=== PATIENT | female | born 1995 | race Hispanic/Latino ===

== ENCOUNTER 2018-03-28 10:31 | Emergency (ER) | payer SELFPAY ==
[2018-03-28] MEDS ORDERED: Ketorolac Tromethamine 30 MG/ML VIAL ONE (11:23)
--- NOTE | 2018-03-28 11:44 | RAD ---
1 VIEW CHEST: Date: 03/28/18 HISTORY: Pain. COMPARISON: None. FINDINGS: Normal cardiac silhouette. Pulmonary vessels and hilum are normal. Costophrenic angles are clear. No mass or consolidation. No pneumothorax or osseous abnormalities. IMPRESSION: No acute cardiopulmonary process. POS: TAMICA
== END 2018-03-28 12:06 | disposition home or self-care (01) ==
LOC: ERS 10:31
DX: B02.9 Zoster without complications (principal); I10 Essential (primary) hypertension
CPT/HCPCS: 71045; 93005; 96372; J1885

== ENCOUNTER 2018-07-28 21:56 | Inpatient (IN) | payer SELFPAY ==
[~2018-07-28 21:56] MED LIST: ISOVUE-370 76%-LOCM 1 ML ONE
[2018-07-28] MEDS ORDERED: Morphine 4 MG/ML VIAL ONE (22:18)
[2018-07-28 22:40] LABS: #Basophils 0.1 thou/uL (0.0-0.2); #Eosinphils 0.1 thou/uL (0.0-0.7); #Lymphocytes 3.1 thou/uL (1.20-3.40); #Monocytes 0.6 thou/uL (0.11-0.59); #Neutrophils 6.5 thou/uL (1.40-6.50); %Basophils 0.5 % (0.0-1.0); %Eosinophils 0.8 % (0.0-10.0); %Lymphocytes 29.8 % (21.0-51.0); %Monocytes 5.4 % (0.0-10.0); %Neutrophils 63.5 % (42.0-75.0); Hemoglobin 14.1 g/dL (12.0-16.0); Mean Corpuscular HGB CONC 33.5 g/dL (32.0-36.0); Mean Corpuscular Hemoglobin 29.2 pg (27.0-31.0); Mean Corpuscular Volume 87.3 fL (78.0-98.0); Mean Platelet Volume 8.9 fL (7.4-10.4); Platelet Count 305 thou/uL (130-400); RBC Distribution Width 12.1 % (11.5-14.5); Red Blood Cell (RBC) Count 4.83 mill/uL (4.20-5.40); White Blood Cell (WBC) Count 10.3 thou/uL (4.8-10.8)
[2018-07-28 22:51] LABS: BHCG - Serum Negative (NEGATIVE); Pregs Control Background? CLEAR/WHITE (CLR/WHITE); Pregs Control Bar Appear? YES (CONTROL BAR)
--- NOTE | 2018-07-28 23:23 | RAD ---
TWO VIEW CHEST: 07/28/18 COMPARISON: 03/28/18 INDICATION: Chest pain. FINDINGS: There is patchy left basilar density. Right lung is grossly clear. No obvious effusion or discrete pn eumothorax. Cardiac silhouette is accentuated by shallow depth of inspiration. IMPRESSION: Patchy left basilar density which may either relate to atelectasis or lingular pneumonia. Correlate c linically and as necessary imaging followup may be obtained. POS: DAVY
--- NOTE | 2018-07-28 23:55 | CT ---
CTA CHEST WITH 3D VOLUME RENDERING WITH CONTRAST: 07/28/18 CLINICAL HISTORY: Short of breath. FINDINGS: There is generalized diminished contrast bolus of the pulmonary arterial system, which precludes reli able assessment as pulmonary emboli could be undetectable given the generalized low density contrast bolus of the arterial system. There is enlargement of the pulmonary trunk and do a lesser extent at t he main pulmonary arteries. This can be seen in the setting of pulmonary artery hypertension. There is reticulonodular compaction of the right lower lobe. Patchy density is seen within middle lob e. Left basilar atelectasis is present. The thoracic aorta is normal in caliber. Incidental note of l ow attenuation of the hepatic parenchyma indicative of fatty infiltration. Correlate liver function e nzymes. Evidence of prior cholecystectomy. IMPRESSION: Incomplete assessment for the detection of pulmonary emboli due to generalized low density contrast b olus. No definite large pulmonary embolus is identified. Reticulonodular opacification of the right lower lobe may be related to an atypical infection/inflamm atory process. Additional scattered patchy pulmonary parenchymal opacities demonstrated bilaterally m ay relate to sites of atelectasis. Recommend clinical correlation as well as imaging followup to con firm resolution of densities of the right lower lobe. POS: DAVY
[2018-07-29 00:06] LABS: Bilirubin Negative (Negative); Blood, Urine Negative (Negative); Clarity CLEAR (Clear); Glucose, Urine (Dipstick) Negative (Negative); Leukocyte Negative (Negative); Nitrite Negative (Negative); Protein, Urine (Dipstick) Negative (Neg-Trace); pH, Urine 7.5 (5.0-9.0)
[2018-07-29 00:08] LABS: Specific Gravity, Urine 1.043 (1.002-1.036)
[2018-07-29 00:16] LABS: Albumin 4.1 g/dL (3.5-5.0)
[2018-07-29 00:17] LABS: Chloride 106 mmol/L (98-107); Potassium 4.3 mmol/L (3.5-5.1); Sodium 138 mmol/L (136-145)
[2018-07-29 00:18] LABS: Calcium 9.4 mg/dL (7.8-10.44); Glucose 114 mg/dL (70-105)
[2018-07-29 00:19] LABS: Globulin 3.1 g/dL (2.4-3.5); Protein, Total 7.2 g/dL (6.0-8.3)
[2018-07-29 00:20] LABS: Amphetamine Not Detected (NotDetected); Barbiturates Screen Not Detected (NotDetected); Benzodiazepine Screen Not Detected (NotDetected); Cocaine Metabolite Screen Not Detected (NotDetected); Medtox Control Line Valid? VALID (VALID); Medtox Reader # READER 4; Methadone Not Detected (NotDetected); Methamphetamine Not Detected (NotDetected); Opiate Screen Detected (NotDetected); Oxycodone Screen Not Detected (NotDetected); Phencyclidine (PCP) Not Detected (NotDetected); THC/Cannabinoid Screen Not Detected (NotDetected); Tricyclic Screen Not Detected (NotDetected)
[2018-07-29 00:20] LABS: Anion Gap 12 mmol/L (10-20); Bilirubin, Total 0.3 mg/dL (0.2-1.2); Carbon Dioxide 24 mmol/L (22-29)
[2018-07-29 00:21] LABS: Alcohol Less than 10 mg/dL (Less than 10); Alkaline Phosphatase 48 U/L (40-150)
[2018-07-29 00:22] LABS: Calc. Creatinine Clearance 0 mL/min (70-130); Estimated GFR-MDRD Greater than 90
[2018-07-29 00:23] LABS: AST (SGOT) 16 U/L (5-34); BUN (Urea Nitrogen) 13 mg/dL (7.0-18.7)
[2018-07-29 00:24] LABS: ALT (SGPT) 19 U/L (8-55); Acetaminophen Less than 6.0 mcg/mL (10.0-30.0); Salicylate Less than 8.0 mg/dL (15.0-30.0)
[2018-07-29] MEDS ORDERED: Ketorolac Tromethamine 30 MG/ML VIAL ONE (01:00)
[2018-07-29] MEDS ORDERED: Ondansetron PF 4 MG/2 ML Vial ONE ×2 (01:00→02:43)
[2018-07-29] MEDS ORDERED: Azithromycin 500 MG VIAL ONE (01:15)
[2018-07-29] MEDS ORDERED: cefTRIAXone\\ROCEPHIN 1 GM VIAL ONE (01:26)
[2018-07-29 03:04] LABS: Lactic Acid 2.6 mmol/L (0.5-2.2)
[2018-07-29 03:29] VITALS: BMI 41.5
[2018-07-29] MEDS ORDERED: Ondansetron PF 4 MG/2 ML Vial IVP PRN (04:47)
[2018-07-29] MEDS ORDERED: Acetaminophen 325 MG TAB PO PRN (04:47)
[2018-07-29] MEDS ORDERED: Enoxaparin Sodium 100 MG/ML SYRINGE SC SCH ×2 (05:30→21:00)
--- NOTE | 2018-07-29 07:05 | HP ---
PRIMARY CARE PHYSICIAN: Dr. Darling. CODE STATUS: Full code. TIME OF EVALUATION: 5:00 a.m. CHIEF COMPLAINT: Chest pain. HISTORY OF PRESENT ILLNESS: This is a 22-year-old female patient with past medical history of obesity, also taking oral contraceptive pills. The patient came to the hospital after having left-sided chest pain that was presently worsening with deep inspiration, improving with pain medications given in the hospital. No clear triggers. No alleviating factors. The patient has associated cough. No significant sputum production. Had no fever. The symptoms were reported as severe. Pain was reported as 8/10. REVIEW OF SYSTEMS: CONSTITUTIONAL: No fever, chills, or generalized weakness. RESPIRATORY: The patient has shortness of breath and left-sided pleuritic pain. No sputum production. CARDIOVASCULAR: No chest pain or palpitation. GASTROINTESTINAL: No nausea. No vomiting, diarrhea, or abdominal pain. POLY OPERATOR: No dizziness, headache, or feeling lightheaded. GENITOURINARY: No burning on urination. EXTREMITIES: No leg swelling. All other systems were reviewed and negative except for the findings mentioned above. PAST MEDICAL HISTORY: Positive for obesity and hypertension. FAMILY HISTORY: Reviewed, noncontributory for current presentation. PAST SURGICAL HISTORY: Cholecystectomy. PSYCHIATRIC HISTORY: No previous psych history. SOCIAL HISTORY: Drinks socially once a month. The patient denies any drug use. No smoking history. KNOWN ALLERGIES: No known drug allergies. REPORTED MEDICATIONS: Unknown control pills. PHYSICAL EXAMINATION: VITAL SIGNS: On presentation, blood pressure 148/76 with heart rate of 114, respiratory rate was 30, temperature 98.2, pain 8/10, and oxygen saturation 98% on room air. GENERAL APPEARANCE: The patient is alert, oriented, not in acute distress. HEENT: Eyes, normal conjunctivae. Moist oral mucosa. Anicteric. No JVD. RESPIRATORY: Bilateral air entry. No rales. No wheezes. Symmetric expansion. CARDIOVASCULAR: The patient is tachycardic, irregular rhythm. No murmurs, no gallops. No edema. ABDOMEN: Soft. Normal bowel sounds. MUSCULOSKELETAL: Baseline range of motion and strength. No tenderness. SKIN: Warm and intact. No pallor. No rash. No redness. VASCULAR: Peripheral pulses are present. Capillary refill seems to be intact. NEURO: No evidence of any new focal weakness. Baseline speech. Cranial nerves seem to be intact. PSYCH: The patient is in good mood. No anxiety. Optimal judgment. DIAGNOSTIC DATA: EKG was reviewed. The patient has sinus tachycardia at a rate of 107. IA 154, QRS 78, and QT corrected 421. LABORATORY DATA: Reviewed. The patient has white count 10.3, hemoglobin 14.1, hematocrit 42.2, and platelet count 305. D-dimer 1.92 and is positive. Serum chemistry; sodium 138, potassium 4.3, chloride 106, carbon dioxide 24, anion gap 12, BUN 13, creatinine 0.69, GFR greater than 90, glucose 114, lactic acid 2.4 and a repeat one 2.6, calcium 9.4, total bilirubin 0.3, AST 16, ALT 19, and alkaline phosphatase 48. Troponin was negative. TSH 7.6. Toxicology was positive for opiates. ASSESSMENT AND PLAN: The patient will be placed in the hospital with following medical problems: 1. Chest pain that is atypical, likely secondary to underlying infectious process and pulmonary embolism remains in the differential. The patient will be started on antibiotics and also anticoagulation, CT angio showed possible infiltrates versus atelectasis and also was of not good quality to rule out pulmonary embolism. 2. Possible pneumonia likely causing the chest pain. The patient will be started on antibiotics and we will follow up cultures, we will adjust treatment as per sensitivity. 3. Elevated D-dimer with chest pain, tachycardia has been going with Lovenox. Might need a repeat CAT scan to rule out pulmonary embolism. 4. Deep venous thrombosis prophylaxis. The patient has been started on anticoagulation. 5. The patient is obese. Recommendations to lose weight. Job ID: [id number]
[2018-07-29] MEDS ORDERED: Sodium Chloride 0.9% 1,000 ML IV SCH (09:45)
[2018-07-29] MEDS: Sodium Chloride 0.9% 1,000 ML IV SCH ×2 (09:51→18:29)
[2018-07-29] MEDS: Ketorolac Tromethamine 30 MG/ML VIAL IVP PRN ×2 (09:51→20:25)
--- NOTE | 2018-07-29 16:01 | PDOC.PN ---
- Subjective Encounter Start Date: 07/29/18 Encounter Start Time: 15:00 Subjective: f/u for suspected LLL PNA and tachycardia on Zithromax/Rocephin. -: Feels better overall with some pain in L chest with deep inspiration. - Objective Resuscitation Status - Order Detail: 07/29/18 04:47 Resuscitation Status Routine Resuscitation Status: FULL: Full Resuscitation MAR Reviewed: Yes Vital Signs & Weight: Vital Signs (12 hours) Temp Pulse Resp BP BP Pulse Ox 07/29/18 13:25 98.2 F 07/29/18 11:59 98.4 F 94 20 107/62 97 07/29/18 08:15 101 H 20 101/56 L 100 07/29/18 08:09 97.9 F 106 H 16 98/56 L 97 Weight Weight 227 lb 4.8 oz I&O: 07/28/18 07/29/18 07/30/18 06:59 06:59 06:59 Intake Total 0 1240 Output Total 500 Balance -500 1240 Result Diagrams: 07/28/18 22:29 07/28/18 23:39 Additional Labs: Laboratory Tests 07/28/18 07/28/18 07/29/18 22:29 22:29 02:41 Lactic Acid 2.6 H B-Natriuretic Peptide Less than 10.0 TSH 3rd Generation 7.6715 H Radiology Reviewed by me: Yes (CTA chest - incomplete bolus, no obvious PE) EKG Reviewed by me: Yes (Tele - sinus tachycardia in low-100's) Phys Exam - Physical Examination Constitutional: NAD HEENT: PERRLA, sclera anicteric, oral pharynx no lesions Neck: no nodes, no JVD, supple, full ROM Respiratory: no wheezing, no rales, no rhonchi, clear to auscultation bilateral tachycardia Cardiovascular: no significant murmur, no rub, gallop Gastrointestinal: soft, non-tender, no distention, positive bowel sounds Musculoskeletal: no edema, pulses present Neurological: normal sensation, moves all 4 limbs Psychiatric: A&O x 3 Skin: normal turgor, cap refill <2 seconds Dx/Plan (1) Sepsis Code(s): A41.9 - SEPSIS, UNSPECIFIED ORGANISM Status: Acute Comment: Suspected due to PNA, continue supportive mgmt, IVF's, continue Rocephin/ Zithromax (2) Bacterial pneumonia Code(s): J15.9 - UNSPECIFIED BACTERIAL PNEUMONIA Status: Acute Comment: LLL involvement, continue Rocephin/Zithromax, pain control (3) Sinus tachycardia Code(s): R00.0 - TACHYCARDIA, UNSPECIFIED Status: Acute Comment: Due to #1, IVF's, monitor on tele (4) Lactic acidosis Code(s): E87.2 - ACIDOSIS Status: Acute Comment: Due to #1, see above for mgmt - Plan plan discussed w/ family, continue antibiotics, out of bed/ambulate, DVT proph w /heparin, DVT proph w/SCDs Stable currently -: Continue Zithromax/Rocephin -: IV NS bolus then 150ml/h -: Pain control as clinically indicated -: D/C Lovenox * AM lab: BMP, CBC * Convert to inpt status
[2018-07-30] MEDS: Sodium Chloride 0.9% 1,000 ML IV SCH ×3 (00:56→08:44)
[2018-07-30] MEDS ORDERED: cefTRIAXone\\ROCEPHIN 1 GM in Sodium Chloride 0.9% 100 ML IVPB SCH (01:00)
[2018-07-30] MEDS ORDERED: Azithromycin 500 MG in Sodium Chloride 0.9% 250 ML 250 ML IVPB SCH (02:00)
[2018-07-30] MEDS: Ketorolac Tromethamine 30 MG/ML VIAL IVP PRN (03:53)
[2018-07-30 05:15] LABS: #Basophils 0.1 thou/uL (0.0-0.2); #Eosinphils 0.3 thou/uL (0.0-0.7); #Lymphocytes 2.6 thou/uL (1.20-3.40); #Monocytes 0.4 thou/uL (0.11-0.59); #Neutrophils 3.8 thou/uL (1.40-6.50); %Basophils 0.8 % (0.0-1.0); %Eosinophils 4.4 % (0.0-10.0); %Lymphocytes 36.3 % (21.0-51.0); %Monocytes 5.3 % (0.0-10.0); %Neutrophils 53.1 % (42.0-75.0); Hemoglobin 11.5 g/dL (12.0-16.0); Mean Corpuscular HGB CONC 34.1 g/dL (32.0-36.0); Mean Corpuscular Volume 87.9 fL (78.0-98.0); Mean Platelet Volume 8.7 fL (7.4-10.4); Platelet Count 248 thou/uL (130-400); Red Blood Cell (RBC) Count 3.85 mill/uL (4.20-5.40); White Blood Cell (WBC) Count 7.2 thou/uL (4.8-10.8)
[2018-07-30 05:33] LABS: Anion Gap 13 mmol/L (10-20); BUN (Urea Nitrogen) 8 mg/dL (7.0-18.7); Calc. Creatinine Clearance 226 mL/min (70-130); Calcium 9.1 mg/dL (7.8-10.44); Carbon Dioxide 22 mmol/L (22-29); Chloride 109 mmol/L (98-107); Estimated GFR-MDRD Greater than 90; Glucose 79 mg/dL (70-105); Potassium 3.7 mmol/L (3.5-5.1); Sodium 140 mmol/L (136-145)
[2018-07-30 16:46] VITALS: BP 114/78; TEMP 98
--- NOTE | 2018-07-31 02:25 | DIS ---
DATE OF ADMISSION: 07/29/2018 DATE OF DISCHARGE: 07/30/2018 DISCHARGE DIAGNOSES: 1. Sepsis secondary to bacterial pneumonia, resolving. 2. Bacterial pneumonia, left lower lobe, suspected gram-positive cocci. 3. Sinus tachycardia secondary to sepsis, resolved. 4. Lactic acidosis, resolved. CONSULTATIONS: None. PERTINENT LAB AND X-RAY FINDINGS: Basic metabolic profile within normal limits. Lactic acid level ranged between 2.4 to 2.6. LFTs within normal limits. BNP less than 10. TSH 7.67. Serum beta HCG negative. CBC showed a white blood cell count ranging between 7.2 to 10.3. D-dimer 1.92. Urinalysis negative. Urine drug screen positive for opiates. Plasma alcohol level less than 10. Portable chest x-ray dated 07/28/2018 showed left basilar infiltrate. CT angiogram of the chest dated 07/28/2018 showed no evidence for pulmonary embolus. Right lower lobe infiltrate noted. Patchy infiltrate noted in the left lower lobe. HOSPITAL COURSE: The patient was admitted to the telemetry unit after initially presenting with left-sided chest pain with deep inspiration. The patient underwent plain radiographic imaging as well as CT imaging of the chest with evidence of infiltrative process of the right middle and lower lobe as well as atelectasis of the left lower lobe. The patient was placed on broad-spectrum IV antibiotic therapy with Zithromax and Rocephin and given pain control with oral and IV methods. The patient also underwent CT angiogram of the chest without specific evidence of acute pulmonary embolus. The patient did receive a dose of Lovenox in the emergency room; however, this was discontinued as patient's presentation was consistent with infectious process. The patient clinically improved with IV antibiotic therapy and general supportive care with resolution of tachycardia and improved chest pain. I have examined the patient at the time of discharge and discussed followup instructions. The patient verbalized understanding and in agreement and ready for discharge on 07/30/2018. DISCHARGE MEDICATIONS: 1. Omnicef 300 mg p.o. b.i.d. x10 days. 2. Tri-Sprintec 1 tablet p.o. daily. FOLLOWUP: The patient may follow up with her primary care provider, Dr. Marianne Darling within 7 days of discharge. CONDITION ON DISCHARGE: Stable. ACTIVITY: Ad-shahram. DIET: Regular. CODE STATUS: Full. DISPOSITION: To home, 07/30/2018. Job ID: [id number]
== END 2018-07-30 12:40 | disposition home or self-care (01) | DRG 871 ==
LOC: ERS 21:56 → 2SW 07-29 01:21 → OBSVTOIN 07-29 14:35 → 2NO 07-30 06:30
PROVIDERS: ADMIT Hospitalist; ATTEND Hospitalist
DX: A41.89 Other specified sepsis (principal); J15.9 Unspecified bacterial pneumonia; Z68.41 Body mass index [BMI] 40.0-44.9, adult; E87.2 Acidosis; I10 Essential (primary) hypertension; E66.9 Obesity, unspecified; Z90.49 Acquired absence of other specified parts of digestive tract
CPT/HCPCS: 36415; 71046; 71275; 80048; 80053; 80306; 80307; 81003; 83605; 83880; 84443; 84484; 84703; 85025; 85379; 93005; 96361; 96365; 96367; 96375; 96376; J0456; J0696; J1650; J1885; J2270; J2405; J7050; Q9966